=== PATIENT | female | born 1995 | race African-American/Black ===

== ENCOUNTER 2019-12-10 14:00 | Emergency (ER) | payer OTHER, SELFPAY ==
--- NOTE | ~2019-12-10 | XR_ITS ---
EXAMINATION: XR chest 2V DATE: 12/10/2019 15:00 INDICATION: Midline chest pain. Shortness of breath. TECHNIQUE: Frontal and lateral views of the chest were obtained. COMPARISON: CT abdomen and pelvis 10/25/2016 FINDINGS: The chest demonstrates clear lungs without pneumonia, pleural effusion, or pneumothorax. Th e heart size is normal. IMPRESSION: 1. No acute cardiopulmonary disease. Reviewed, dictated and finalized at location A. D WELFARE WORKER
[2019-12-10 14:40] VITALS: BP 117/73; PULSE 75; RESP 16; TEMP 37.1; O2SAT 100
--- NOTE | 2019-12-10 14:47 | ECG_ITS ---
Measurements Intervals [place] Rate: 75 P: 21 AR: 149 QRS: 74 QRSD: 72 T: 39 QT: 364 QTc: 406 Interpretive Statements SINUS RHYTHM BASELINE ARTIFACT- I, II, AVR, AVL NORMAL ECG Electronically Signed On 12-10-2019 15:54:04 TURN OUT WORKER by Balbir Fisher D.O.
[2019-12-10 14:57] LABS: Basophils Percent Auto 0.5 % (0.2-1.2); Eosinophils Absolute Auto 0.2 K/mm3 (0-0.3); Eosinophils Percent Auto 2.5 % (0-4.4); Hematocrit 32.9 % (37.0-47.0); Hemoglobin 9.1 g/dL (12.0-15.0); Immature Granulocyte Absolute 0.01 K/mm3 (0.00-0.031); Immature Granulocyte Percent A 0.1 % (0-0.5); Immature Platelet Fraction Pct 3.9 % (0.9-11.2); Lymphocytes Absolute Auto 1.44 K/mm3 (0.9-3.2); Mean Corpuscular HGB Conc 27.7 g/dl (32-36); Mean Corpuscular Hemoglobin 17.4 pg (26-34); Mean Platelet Volume 10.4 fl (7.4-10.4); Monocytes Absolute Auto 0.7 K/mm3 (0.1-0.6); Monocytes Percent Auto 8.6 % (2.6-8.5); Neutrophils Absolute Auto 5.2 K/mm3 (1.3-6.7); Neutrophils Percent Auto 69.3 % (45.5-73.1); Platelet Count Result 449 k/mm3 (150-375); Red Blood Count 5.22 M/mm3 (4.2-5.4); Red Cell Distribution Width 21.9 % (11.5-14.5); White Blood Count 7.6 K/mm3 (4.5-10.0)
[2019-12-10 15:03] LABS: Hypochromasia 3+ (NORMAL); Platelet Estimate Increased (Adequate)
[2019-12-10 15:04] LABS: Anisocytosis 1+ (NORMAL); Ovalocytes 1+ (NORMAL); Poikilocytosis 1+ (NORMAL)
[2019-12-10 15:05] LABS: INR 0.9; Prothrombin Time 12.1 Seconds (11.1-14.7)
[2019-12-10 15:06] LABS: Blood Urea Nitrogen 9 mg/dL (7-17); Calcium 9.6 mg/dL (8.4-10.2); Carbon Dioxide 24 mmol/L (22-30); Chloride 101 mmol/L (98-107); Estimated CRCL calculation 115 ml/min; Estimated Glomerular Filt Rate > 60; Glucose 83 mg/dL (65-105); Partial Thromboplastin Time 26.9 SECONDS (22.3-36.8); Potassium 3.8 mmol/L (3.4-5.0); Sodium 137 mmol/L (137-145)
[2019-12-10 15:21] LABS: Troponin I < 0.012 ng/mL (0.000-0.034)
[2019-12-10 18:24] VITALS: BP 104/79; PULSE 85; RESP 16
[2019-12-10 18:25] LABS: Troponin I < 0.012 ng/mL (0.000-0.034)
--- NOTE | 2019-12-10 18:32 | ED.CHESTPAIN ---
HPI - Chest Pain General Chief Complaint: Chest Pain Stated Complaint: chest pain, sent from siue Time Seen by Provider: 12/10/19 18:17 Source: patient Mode of arrival: ambulatory Limitations: no limitations History of Present Illness HPI narrative: The pt is a 24 y/o female who presents to the ED c/o diffuse CP onset today. 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 Pt states that this lasted 30-40 minutes, and the pain was worse on the left. Pt notes that her pain is resolved now. Pt reports SOB, but denies N/V and diaphoresis. MD complaint: chest pain Timing of current episode: now resolved Pain location: other (Diffuse chest, but worse on left side) Quality: other (Tightness) Associated symptoms: dyspnea Related Data Allergies Allergy/AdvReac Type Severity Reaction Status Date / Time divalproex sodium [Depakote] Allergy Unknown vomitting Verified 11/02/17 21:20 doxycycline Allergy Unknown Nausea Verified 11/02/17 21:20 montelukast Allergy Unknown agitation, Verified 11/02/17 21:20 mood changes. prednisone Allergy Unknown vomitting Verified 11/02/17 21:20 latex AdvReac Intermediate ITCHING AT Verified 10/25/16 07:50 SITE Review of Systems Review of Systems: All systems reviewed & are unremarkable except as noted in HPI and below Constitutional: Constitutional: Denies excessive sweating Cardiovascular: Cardiovascular: Reports chest pain (Diffuse, worse on left-side, resolved) Respiratory: Respiratory: Reports dyspnea Gastrointestinal: Gastrointestinal: Denies nausea and Denies vomiting [facility] Past Medical History Medical History (Updated 12/10/19 @ 19:19 by Fernando De Luna MD) Iron deficiency Ovarian cyst Surgical History Surgical History (Updated 12/10/19 @ 18:34 by Gene Bailon) Surgical history unknown Family History Family History (Updated 08/19/18 @ 15:23 by DOCTOR UNKNOWN) Grandparent Family history of malignant neoplasm of ovary Other Diabetes mellitus Hypertension Social History Social History Smoking status: Never smoker Alcohol intake: current Substance use type: marijuana Exam Const: General: no acute distress and alert Orientation/consciousness: patient oriented x3 HENMT: Head: normal to inspection Eyes: Conjunctivae: conjunctivae normal Pupils: Equal, round and reactive pupils present Neck: Neck: normal visual inspection Chest: Chest palpation & inspection: normal inspection of the chest Resp: Effort & Inspection: normal respiratory effort Auscultation: clear to auscultation bilaterally Cardio: Rate: regular rate Rhythm: regular rhythm GI: Auscultation: normal bowel sounds Back/Spine/Pelvis: Back: no CVA tenderness Skin: General skin exam: normal color Neuro: General: patient oriented x3 and moves all extremities Extrem: General: normal to inspection Psych: Mental Status: mental status grossly normal Thought content: Yes Normal thought content present Course Course Emergency Course: Patient comfortably lying on the stretcher in no discomfort, I discussed labs, EKG and chest x-ray findings with the patient and the family. This time a cause of pain most likely could be anxiety versus musculoskeletal origin. Advised her to take Tylenol ibuprofen for pain. And follow-up with her primary doctor. Vital Signs Vital signs: Vital Signs Temperature 37.1 C 12/10/19 14:40 Pulse Rate 75 12/10/19 14:40 Respiratory Rate 16 12/10/19 14:40 Blood Pressure 117/73 12/10/19 14:40 Pulse Oximetry 100 12/10/19 14:40 Temperature 37.1 C 12/10/19 14:40 Pulse Rate 75 12/10/19 14:40 Respiratory Rate 16 12/10/19 14:40 Blood Pressure 117/73 12/10/19 14:40 Pulse Oximetry 100 12/10/19 14:40 MDM - Chest Pain Lab Data Result diagrams: 12/10/19 14:49 12/10/19 14:49 Labs: Lab Results 12/10/19 12/10/19 12/10/19 Range/Units
--- NOTE | 2019-12-10 19:30 | PC.NURSE ---
ASSUMED CARE AT THIS TIME.
[2019-12-10 19:33] VITALS: BP 109/67; PULSE 76; RESP 18; TEMP 37; O2SAT 100
== END 2019-12-10 19:35 | disposition home or self-care (01) ==
PROVIDERS: Emergency Medicine; Emergency Provider Family Medicine; PCP Family Medicine
DX: R07.89 Other chest pain (principal); D50.9 Iron deficiency anemia, unspecified
CPT/HCPCS: 36415; 71046; 80048; 84484; 85025; 85055; 85610; 85730; 93005; 99284

== ENCOUNTER 2021-02-12 01:22 | Emergency (ER) | payer SELFPAY ==
[2021-02-12 01:29] VITALS: BP 128/70; PULSE 120; RESP 18; TEMP 36.3; O2SAT 98
[2021-02-12] MEDS: LIDOCAINE HCL 1% LOCAL INJ 20 ML VIAL 5 ML INFILTRATE (02:46)
[2021-02-12] MEDS: HYDROmorphone HCL INJ (*CRX) 1 MG/ML SYR IM (02:46)
[2021-02-12 03:30] VITALS: BP 118/64; PULSE 115; RESP 16; O2SAT 98
--- NOTE | 2021-02-12 04:07 | ED.GENADULT ---
HPI - General Adult General Chief complaint: Wound/Laceration Stated complaint: boil/ cyst L axilla Time Seen by Provider: 02/12/21 02:20 History of Present Illness HPI narrative: Patient is a 25-year-old female presents to emergency department chief complaint of pain in the left axilla. The patient states that she has history of infections in her armpit and reports that she has seen her doctor who told her that they could not be opened. Patient reports she is had pain for several days and has been progressively swelling patient states it hurts whenever she moves her left arm. Patient denies fever denies chills Related Data Home Medications Medication Instructions Recorded Confirmed loratadine 10 mg tablet 10 mg PO DAILY 05/07/20 01/03/21 Allergies Allergy/AdvReac Type Severity Reaction Status Date / Time divalproex sodium [Depakote] Allergy Unknown vomitting Verified 02/12/21 01:31 doxycycline Allergy Unknown Nausea Verified 02/12/21 01:31 montelukast Allergy Unknown agitation, Verified 02/12/21 01:31 mood changes. prednisone Allergy Unknown vomitting Verified 02/12/21 01:31 latex AdvReac Intermediate ITCHING AT Verified 02/12/21 01:31 SITE Review of Systems Review of Systems: Narrative: A 10 system review of systems was completed on the patient and is negative except for what is stated in the HPI. Nursing and ancillary documentation was reviewed. [facility] Past Medical History Medical History Iron deficiency Menorrhagia Ovarian cyst Overweight (BMI 25.0-29.9) Panic disorder/agoraphobia, agoraphobc avoid full rmssn/mld panc attck Sciatica Surgical History Surgical History Surgical history unknown Family History Family History Grandparent Family history of malignant neoplasm of ovary Other Diabetes mellitus Hypertension Social History Social History Alcohol intake: current Substance use type: marijuana Gender identity (if verbalized by the patient): Female Exam Narrative: Exam Narrative: GENERAL: Well-appearing, well-nourished, and in no acute distress. HEAD: Normocephalic, atraumatic. EYES: PERRLA and EOMI. ENT: Nares clear, no rhinorrhea or epistaxis. Mucous membranes moist. NECK: Supple. CHEST: Clear to auscultation. No respiratory distress. HEART: Regular rate and rhythm. No murmur heard. Normal peripheral pulses. ABDOMEN: Soft, nontender, nondistended, normal active bowel sounds. EXTREMITIES: Normal range of motion. No edema. Left axilla there is a large tender swollen area SKIN: Warm, dry, no rash. NEURO: No focal deficits. Alert and oriented x3. PSYCH: Normal mood and affect. Course Vital Signs Vital signs: Vital Signs Temperature 36.3 C L 02/12/21 01:29 Pulse Rate 120 H 02/12/21 01:29 Respiratory Rate 18 02/12/21 01:29 Blood Pressure 128/70 02/12/21 01:29 Pulse Oximetry 98 02/12/21 01:29 Temperature 36.3 C L 02/12/21 01:29 Pulse Rate 120 H 02/12/21 01:29 Respiratory Rate 18 02/12/21 01:29 Blood Pressure 128/70 02/12/21 01:29 Pulse Oximetry 98 02/12/21 01:29 Procedures Abscess I/D Left axilla: Date of Incision: 02/12/21 Time of Incision: 04:00 Side (if applicable): left Local Anesthetic: lidocaine 1% Amount of anesthesia used (mL): 5 Technique: incised with #11 blade Amount of fluid expressed (mL): 10 Packing used?: none I&D Results: Pus Medical Decision Making Vital Signs Vital Signs: Vital Signs Temperature 36.3 C L 02/12/21 01:29 Pulse Rate 120 H 02/12/21 01:29 Respiratory Rate 18 02/12/21 01:29 Blood Pressure 128/70 02/12/21 01:29 Pulse Oximetry 98 02/12/21 01:29 Temperature 36.3 C L 0
[2021-02-12] MEDS: HYDROcodone/acetaminophen (*CRX) 5-325 MG TABLET 1 TAB PO (04:23)
[2021-02-12] MEDS: CLINDAMYCIN HCL 150 MG CAP 300 MG PO (04:24)
[2021-02-12 04:55] VITALS: BP 109/64; PULSE 68; RESP 16; O2SAT 96
== END 2021-02-12 04:55 | disposition home or self-care (01) ==
PROVIDERS: Emergency Provider Emergency Medicine; PCP Family Medicine
DX: L02.412 Cutaneous abscess of left axilla (principal)
CPT/HCPCS: 10060; 96372; 99283; A9270; J1170

== ENCOUNTER 2021-08-18 11:55 | Emergency (ER) | payer SELFPAY | END 2021-08-18 11:56 | disposition left against medical advice (07) | PROVIDERS: PCP Family Medicine | DX: Z53.21 Procedure and treatment not carried out due to patient leaving prior to being seen by health care provider (principal) | CPT/HCPCS: 99199 ==

== ENCOUNTER 2021-08-22 12:25 | Outpatient (CLI) | payer OTHER, SELFPAY ==
--- NOTE | 2021-08-22 12:56 | ECHO_ITS ---
Patient Info Name: Fouzia Galvez Age: 26 years : 1995 Gender: Female Ht: 62 in Wt: 157 lbs BSA: 1.79 m2 HR: 71 bpm BP: 125 / 91 mmHg Exam Date: 08/22/2021 1:02 PM Exam Location: [facility] Patient Status: Outpatient Admit Date: 08/22/2021 Staff Ordering Physician: Momo Marcum MD Chairman & Chief Executive Officer: Karen Barajas RDCS Attending Provider: Momo Marcum MD Referring Physician: Trixie HIGGINBOTHAM; Exam Type: CA echo doppler color flow Study Info Indications R94.31 - Abnormal electrocardiogram ECG EKG Complete two-dimensional, color flow and Doppler transthoracic echocardiogram is performed. Summary 1. Complete two-dimensional, color flow and Doppler transthoracic echocardiogram is performed. 2. Left ventricular chamber dimension is normal. 3. Left ventricular systolic function is normal, estimated at 60-65%. 4. The left ventricular diastolic function is normal. 5. E/e' 6 is not elevated. 6. Global longitudinal strain is normal at -19.8%. 7. There is no tricuspid valve regurgitation. 8. No pulmonary hypertension, estimated pulmonary arterial systolic pressure is 27 mmHg. Left Ventricle E/e' 6 is not elevated. Global longitudinal strain is normal at -19.8%. Left ventricular chamber dimension is normal. Left ventricular systolic function is normal, estimated at 60-65%. The left ventricular diastolic function is normal. Right Ventricle Right ventricular chamber dimension is normal. Right ventricular systolic function is normal. Left Atria Left atrial chamber dimension is normal. Right Atria Right atrial chamber dimension is normal. Aortic Valve The aortic valve is trileaflet. There is no aortic valve stenosis. There is no aortic valve regurgitation. Pulmonic Valve There is no pulmonic regurgitation. Mitral Valve There is no mitral valve stenosis. There is no mitral valve regurgitation. Tricuspid Valve There is no tricuspid valve regurgitation. No pulmonary hypertension, estimated pulmonary arterial systolic pressure is 27 mmHg. Pericardium/Pleural There is no pericardial effusion. Inferior Vena Cava Normal inferior vena cava with >50% collapse upon inspiration consistent with normal right atrial pressure, 5 mmHg. Aorta The aortic root size at the sinus of Valsalva is normal. Left Ventricular Outflow Tract Name Value Normal LVOT 2D LVOT Diameter 2.0 cm LVOT Doppler LVOT Peak Gradient 4 mmHg LVOT Mean Gradient 2 mmHg LVOT VTI 23 cm LVOT VTI/AV VTI Ratio 0.9 LVOT Stroke Volume 69 ml LVOT CO 5.0 l/min LVOT CI 2.8 l/min/m2 Pulmonic Valve Name Value Normal RVOT Doppler RVOT Peak Grad
== END 2021-08-22 12:26 | disposition home or self-care (01) ==
PROVIDERS: PCP Family Medicine; Visit Provider Family Medicine
DX: R07.89 Other chest pain (principal); R94.31 Abnormal electrocardiogram [ECG] [EKG]
CPT/HCPCS: 93306

== ENCOUNTER 2021-10-04 05:53 | Emergency (ER) | payer OTHER, SELFPAY ==
--- NOTE | ~2021-10-04 | XR_ITS ---
EXAMINATION: XR soft tissue neck DATE: 10/04/2021 06:50 INDICATION: Sore throat. TECHNIQUE: 2 views of the neck soft tissues were obtained. COMPARISON: None. FINDINGS: The adenoids and palatine tonsils are enlarged. The prevertebral soft tissues, epiglottis, and larynx are normal. IMPRESSION: 1. Enlarged adenoids and palatine tonsils. Reviewed, dictated and finalized at location A. CENTER ADMINISTRATOR
[2021-10-04 06:00] VITALS: BP 121/79; PULSE 89; RESP 22; TEMP 36.5; O2SAT 100
--- NOTE | 2021-10-04 06:13 | ED.ALLEREA ---
HPI - Allergic Reaction General Chief complaint: Allergic Reaction Stated complaint: possible allergic reaction Time Seen by Provider: 10/04/21 06:13 Source: patient Mode of arrival: ambulatory Limitations: no limitations History of Present Illness HPI narrative: Patient is a 26-year-old female presenting for evaluation of possible allergic reaction. Patient states that she is having a sore throat, painful swallowing that began acutely 2 hours ago. Patient states that it awaken her from sleep. Patient denies any current shortness of breath or cough. Denies fever, chills, ear pain. States that she has a history of chronic sinus problems, does have some sinus congestion and drainage. Patient denies any neck pain. Denies chest pain, abdominal pain. No nausea, vomiting or diarrhea. No rash or hives. No history of severe allergic reaction or anaphylaxis in the past. Denies new soaps, lotions or detergents. No new pet exposures. No new medications. Patient states that she did eat some fish from the hospital last night, patient works in [employer], but did not have any symptoms until several hours later, early this morning. Related Data Allergies Allergy/AdvReac Type Severity Reaction Status Date / Time divalproex sodium [Depakote] Allergy Unknown vomitting Verified 10/04/21 06:09 doxycycline Allergy Unknown Nausea Verified 10/04/21 06:09 montelukast Allergy Unknown agitation, Verified 10/04/21 06:09 mood changes. prednisone Allergy Unknown vomitting Verified 10/04/21 06:09 latex AdvReac Intermediate ITCHING AT Verified 10/04/21 06:09 SITE Review of Systems Review of Systems: CONSTITUTIONAL: Denies fever, chills, or sweats. EYES: Denies visual changes, redness, or discharge. ENT: Reports rhinorrhea, congestion, sore throat CARDIOVASCULAR: Denies chest pain, palpitations, or edema. RESPIRATORY: Denies cough or dyspnea. GASTROINTESTINAL: Denies abdominal pain, nausea, vomiting, or diarrhea. GENITOURINARY: Denies dysuria or hematuria. SKIN: Denies rash or itching. MUSCULOSKELETAL: Denies back pain, joint pain, or myalgia. NEUROLOGIC: Denies headache, numbness, or weakness. [facility] Past Medical History Medical History COVID-19 Iron deficiency Menorrhagia Ovarian cyst Overweight (BMI 25.0-29.9) Panic disorder/agoraphobia, agoraphobc avoid full rmssn/mld panc attck Sciatica Surgical History Surgical History Surgical history unknown Family History Family History Grandparent Family history of malignant neoplasm of ovary Other Diabetes mellitus Hypertension Social History Social History Alcohol intake: current Substance use type: marijuana Gender identity (if verbalized by the patient): Female Exam Narrative: GENERAL: Awake, alert, conversant HEAD: Normocephalic, atraumatic. EYES: PERRLA and EOMI. ENT: Nares clear, no rhinorrhea or epistaxis. Mucous membranes moist. Uvula is midline without edema. Tonsillar edema without erythema or exudate. NECK: Supple. No cervical anterior lymphadenopathy. CHEST: No respiratory distress, breathing even and non labored HEART: Regular rate, sinus rhythm ABDOMEN:Non distended, non tender throughout EXTREMITIES: Normal range of motion. No edema. SKIN: Warm, dry, no rash. NEURO:No focal deficits. Alert and oriented x3 Course Vital Signs Vital signs: Vital Signs Temperature 36.5 C 10/04/21 06:00 Pulse Rate 89 10/04/21 06:00 Respiratory Rate 22 H 10/04/21 06:00 Blood Pressure 121/79 10/04/21 06:00 Pulse Oximetry 100 10/04/21 06:00 Temperature 36.5 C 10/04/21 06:00 Pulse Rate 64 10/04/21 07:11 Respiratory Rate 16 10/04/21 07:11 Blood Pressure 106/48 L 10/04/21 07:11 Pulse Oximetry 100 10/04/21 07:11
[2021-10-04] MEDS: diphenhydrAMINE HCl INJ 50 MG/ML VIAL 25 MG IV PUSH (06:24)
[2021-10-04] MEDS: SODIUM CHLORIDE 0.9% IV 1,000 ML 999 ML IV CONT (06:24)
[2021-10-04] MEDS: FAMOTIDINE 20 MG/2 ML VIAL IV PUSH (06:26)
[2021-10-04] MEDS: ONDANSETRON INJ 4 MG/2 ML VIAL IV PUSH (06:27)
[2021-10-04] MEDS: KETOROLAC 15 MG/ML VIAL (*BKC) IV PUSH (07:06)
[2021-10-04 07:11] VITALS: BP 106/48; PULSE 64; RESP 16; O2SAT 100
--- NOTE | 2021-10-04 07:21 | PC.NURSE ---
Report to Deisi Parnell RN, to continue care.
[2021-10-04 07:23] LABS: Basophils Percent Auto 0.4 % (0.2-1.2); Eosinophils Absolute Auto 0.4 K/mm3 (0-0.3); Eosinophils Percent Auto 4.3 % (0-4.4); Hematocrit 34.1 % (37.0-47.0); Hemoglobin 10.1 g/dL (12.0-15.0); Immature Granulocyte Absolute 0.02 K/mm3 (0.00-0.031); Immature Granulocyte Percent A 0.2 % (0-0.5); Immature Platelet Fraction Pct 4.9 % (0.9-11.2); Lymphocytes Absolute Auto 1.83 K/mm3 (0.9-3.2); Lymphocytes Percent Auto 19.7 % (18.3-44.2); Mean Corpuscular HGB Conc 29.6 g/dl (32-36); Mean Corpuscular Hemoglobin 19.5 pg (26-34); Mean Corpuscular Volume 65.8 fl (80-100); Mean Platelet Volume 10.8 fl (7.4-10.4); Monocytes Absolute Auto 1.2 K/mm3 (0.1-0.6); Neutrophils Absolute Auto 5.8 K/mm3 (1.3-6.7); Neutrophils Percent Auto 62.4 % (45.5-73.1); Platelet Count Result 411 k/mm3 (150-375); Red Blood Count 5.18 M/mm3 (4.2-5.4); Red Cell Distribution Width 18.7 % (11.5-14.5); White Blood Count 9.3 K/mm3 (4.5-10.0)
[2021-10-04 07:25] LABS: Anion Gap 8 mmol/L (8-16); Blood Urea Nitrogen 14 mg/dL (7-17); Calcium 9.4 mg/dL (8.4-10.2); Carbon Dioxide 24 mmol/L (22-30); Chloride 103 mmol/L (98-107); Estimated CRCL calculation 129 ml/min; Estimated Glomerular Filt Rate > 60; Glucose 92 mg/dL (65-110); Potassium 3.9 mmol/L (3.4-5.0); Sodium 135 mmol/L (137-145)
[2021-10-04 07:43] LABS: Large Platelets Present; Platelet Estimate Increased (Adequate); Poikilocytosis 1+ (NORMAL)
[2021-10-04 07:44] LABS: Hypochromasia 2+ (NORMAL); Ovalocytes 1+ (NORMAL)
[2021-10-04 08:19] VITALS: BP 112/76; PULSE 90; RESP 18; O2SAT 98
--- NOTE | 2021-10-10 15:47 | PC.NURSE ---
LATE ENTRY This note is being entered to document information to the patient's record. The following information was omitted on [10/04/21], by [Alfonso Barr RN]. NS stop time 0715am
== END 2021-10-04 08:19 | disposition home or self-care (01) ==
PROVIDERS: Emergency Provider Emergency Medicine; PCP Family Medicine
DX: J02.9 Acute pharyngitis, unspecified (principal); E66.3 Overweight; Z68.22 Body mass index [BMI] 22.0-22.9, adult; E61.1 Iron deficiency; Z86.16 Personal history of COVID-19; F40.01 Agoraphobia with panic disorder
CPT/HCPCS: 36415; 70360; 80048; 85025; 85055; 87081; 87880; 96361; 96374; 96375; 99284; J1100; J1200; J1885; J2405; J7030

== ENCOUNTER 2022-05-04 10:01 | Outpatient (CLI) | payer OTHER, SELFPAY ==
--- NOTE | ~2022-05-04 | XR_ITS ---
XR shoulder LT min 2V DATE: 05/04/2022 10:46 INDICATION: Left shoulder pain following injury TECHNIQUE: 4 views COMPARISON: None FINDINGS: No fracture or dislocation, periosteal reaction or bone destruction or abnormal soft tissue calcification. IMPRESSION: Normal examination Reviewed, dictated and finalized at location A. IMPRESSION: Normal examination
--- NOTE | ~2022-05-04 | XR_ITS ---
XR AC joint BI DATE: 05/04/2022 10:46 INDICATION: Left shoulder pain. Struck in shoulder. TECHNIQUE: AP views of the sacroiliac joints with and without weights COMPARISON: None FINDINGS: No fracture or dislocation in either clavicle or shoulder area is identified. Normal alignm ent at the acromioclavicular and glenohumeral joints. No evidence of AC joint separation. IMPRESSION: Negative Reviewed, dictated and finalized at Location A. Reviewed, dictated and finalized at location A. IMPRESSION: Negative
== END 2022-05-04 10:02 | disposition home or self-care (01) ==
PROVIDERS: PCP Family Medicine; Visit Provider Family Medicine
DX: S46.919A Strain of unspecified muscle, fascia and tendon at shoulder and upper arm level, unspecified arm, initial encounter (principal); X58.XXXA Exposure to other specified factors, initial encounter
CPT/HCPCS: 73030; 73050

== ENCOUNTER 2023-09-27 13:59 | Emergency (ER) | payer SELFPAY ==
--- NOTE | ~2023-09-27 | XR_ITS ---
EXAMINATION: XR chest 2V 09/27/2023 15:04 INDICATION: Chest pain and shortness of breath PROCEDURE: 2 view chest COMPARISON: 01/19/2021 FINDINGS: The lungs are clear. The cardiomediastinal silhouette is within normal limits. There are no pleural effusions. There is no pneumothorax suspected. IMPRESSION: 1: NO ACUTE CARDIOPULMONARY DISEASE. Reviewed, dictated and finalized at location L. ANT POWDER SUPERVISOR
[2023-09-27 14:19] VITALS: BP 117/82; PULSE 100; RESP 15; TEMP 36.7; O2SAT 100
--- NOTE | 2023-09-27 14:27 | ECG_ITS ---
Measurements Intervals [place] Rate: 80 P: 39 TN: 176 QRS: 70 QRSD: 69 T: 34 QT: 353 QTc: 408 Interpretive Statements SINUS RHYTHM NORMAL ECG COMPARED TO ECG 12/10/2019 14:40:56 NO SIGNIFICANT CHANGES Electronically Signed On 09-27-2023 15:10:51 HOME ASSESSMENT NURSE by Balbir Fisher D.O.
[2023-09-27 15:05] LABS: Basophils Percent Auto 0.6 % (0.2-1.2); Eosinophils Absolute Auto 0.2 K/mm3 (0-0.3); Eosinophils Percent Auto 2.9 % (0-4.4); Hematocrit 37.1 % (37.0-47.0); Hemoglobin 10.9 g/dL (12.0-15.0); Immature Granulocyte Absolute 0.01 K/mm3 (0.00-0.031); Immature Granulocyte Percent A 0.2 % (0-0.5); Lymphocytes Absolute Auto 1.03 K/mm3 (0.9-3.2); Lymphocytes Percent Auto 15.7 % (18.3-44.2); Mean Corpuscular HGB Conc 29.4 g/dl (32-36); Mean Corpuscular Hemoglobin 22.9 pg (26-34); Mean Corpuscular Volume 77.9 fl (80-100); Monocytes Absolute Auto 0.7 K/mm3 (0.1-0.6); Monocytes Percent Auto 10.4 % (2.6-8.5); Neutrophils Absolute Auto 4.6 K/mm3 (1.3-6.7); Neutrophils Percent Auto 70.2 % (45.5-73.1); Platelet Count Result 453 k/mm3 (150-375); Red Blood Count 4.76 M/mm3 (4.2-5.4); Red Cell Distribution Width 15.8 % (11.5-14.5); White Blood Count 6.6 K/mm3 (4.5-10.0)
[2023-09-27 15:15] LABS: Hypochromasia 1+ (NORMAL); Ovalocytes 1+ (NORMAL); Platelet Estimate Increased (Adequate); Schistocytes None Seen (NORMAL)
[2023-09-27 15:19] LABS: Alanine Aminotransferase 32 U/L (6-35); Albumin Level 4.6 g/dL (3.5-5.1); Alkaline Phosphatase 152 U/L (38-126); Anion Gap 11 mmol/L (8-16); Aspartate Amino Transferase 29 U/L (14-36); Bilirubin,Total 0.4 mg/dL (0.2-1.3); Blood Urea Nitrogen 10 mg/dL (7-17); Calcium 9.8 mg/dL (8.4-10.2); Carbon Dioxide 26 mmol/L (22-30); Chloride 102 mmol/L (98-107); Estimated CRCL calculation 94 ml/min; Estimated Glomerular Filt Rate > 60; Glucose 91 mg/dL (65-110); Lipase 73 U/L (23-300); Potassium 4.3 mmol/L (3.4-5.0); Sodium 139 mmol/L (137-145)
[2023-09-27 15:29] LABS: Troponin I < 0.012 ng/mL (0.000-0.034)
[2023-09-27 15:40] LABS: INR 0.9; Prothrombin Time 12.9 Seconds (11.1-14.7)
[2023-09-27 17:13] LABS: D Dimer 0.39 ug/mL (<0.48)
--- NOTE | 2023-09-27 17:29 | ED.ARRPALP ---
HPI - Arrhythmia/Palpitations General Chief Complaint: Arrhythmia/Palpitations Stated Complaint: fast heart rate sent from Urgent Care Time Seen by Provider: 09/27/23 16:13 Source: patient, RN notes reviewed and old records reviewed Mode of arrival: ambulatory Limitations: no limitations History of Present Illness HPI narrative: This is a 28 year old female with history of anxiety and panic attacks who presents for evaluation of chest pain and racing heart. Patient states earlier today she was deep in her thoughts when she developed intermittent sharp chest pain , shortness of breath, sweaty palms and heart racing. She went to [facility] for evaluation. It is reported that her heart rate was 150s at that time so she was referred to ER. She states she feels better although some mild chest pain. She reports history of similar episodes. She has been evaluated with ECHO in the past. She also reports she was placed on medication for panic attacks but she did not like how it made her feel so she was taken off. Related Data Allergies Allergy/AdvReac Type Severity Reaction Status Date / Time divalproex sodium [Depakote] Allergy Unknown vomitting Verified 09/27/23 15:44 doxycycline Allergy Unknown Nausea Verified 09/27/23 15:44 montelukast Allergy Unknown agitation, Verified 09/27/23 15:44 mood changes. prednisone Allergy Unknown vomitting Verified 09/27/23 15:44 latex AdvReac Intermediate ITCHING AT Verified 09/27/23 15:44 SITE Review of Systems Constitutional: Constitutional: Denies weakness Cardiovascular: Cardiovascular: Reports chest pain, Denies syncope, Reports rapid heart rate, Denies irregular heart rhythm, Denies leg edema and Reports dyspnea Respiratory: Respiratory: Denies chest congestion, Denies hemoptysis, Denies excessive phlegm production and Reports dyspnea Gastrointestinal: Gastrointestinal: Denies abdominal pain, Denies hematochezia, Denies diarrhea and Denies vomiting Genitourinary: Genitourinary: Denies hematuria and Denies dysuria Musculoskeletal: Musculoskeletal: Denies joint swelling, Denies loss of height and Denies muscle weakness Neurologic: Denies syncope, Denies focal weakness and Denies weakness [facility] Past Medical History Medical History COVID-19 Iron deficiency Menorrhagia Ovarian cyst Overweight (BMI 25.0-29.9) Panic disorder/agoraphobia, agoraphobc avoid full rmssn/mld panc attck Sciatica Surgical History Surgical History Surgical history unknown Family History Family History Grandparent Family history of malignant neoplasm of ovary Other Diabetes mellitus Hypertension Social History Social History Smoking status: Never smoker Alcohol intake: current Substance use type: marijuana Living arrangements: with roommate(s) Gender identity (if verbalized by the patient): Female Spiritual care concerns: No Exam Const: General: no acute distress and alert Nutritional Appearance: well nourished Orientation/consciousness: patient oriented x3 HENMT: Head: normal to inspection Eyes: EOM: EOMs intact bilaterally Resp: Effort & Inspection: normal respiratory effort Auscultation: clear to auscultation bilaterally Cardio: Rate: regular rate Rhythm: regular rhythm Heart sounds: no murmurs GI: GI Palp: Yes Soft to palpation, No Tenderness to palpation present (GI), No Guarding due to palpation present (GI) and No Rigid due to palpation Auscultation: normal bowel sounds Skin: General skin exam: normal color Rashes: no rashes Wounds: no wounds Neuro: General: patient oriented x3, moves all extremities and CN's II-XI intact bilaterally Extrem: General: normal to inspection and no pedal edema Psych: Mental Status: mental
[2023-09-27 17:34] VITALS: BP 109/74; PULSE 85; RESP 18; TEMP 36.7; O2SAT 100
[2023-09-27 17:46] LABS: Thyroid Stimulating Hormone Reflex 0.307 uIU/mL (0.465-4.68)
[2023-09-27 18:26] LABS: Troponin I < 0.012 ng/mL (0.000-0.034)
[2023-09-27 19:11] LABS: Total Triiodothyronine (T3) 1.45 NG/ML (0.97-1.69)
== END 2023-09-27 19:03 | disposition home or self-care (01) ==
PROVIDERS: Emergency Medicine; Emergency Provider General Practice; PCP Family Medicine
DX: R00.2 Palpitations (principal)
CPT/HCPCS: 36415; 71046; 80053; 83690; 84439; 84443; 84480; 84484; 85025; 85380; 85610; 85730; 93005; 99284

== ENCOUNTER 2024-01-22 07:05 | Emergency (ER) | payer SELFPAY ==
--- NOTE | ~2024-01-22 | XR_ITS ---
EXAMINATION: XR chest 2V DATE: 01/22/2024 07:50 INDICATION: Midline nonradiating chest pain. TECHNIQUE: Frontal and lateral views of the chest were obtained. COMPARISON: Chest 2 views 09/27/2023, CT abdomen and pelvis 10/25/2016 FINDINGS: There is no pneumonia, pleural effusion, or pneumothorax. The heart size is normal. IMPRESSION: 1. No acute cardiopulmonary disease. Reviewed, dictated and finalized at location E.
--- NOTE | ~2024-01-22 | CT_ITS ---
EXAMINATION: CTA chest PE protocol DATE: 01/22/2024 09:23 INDICATION: Is pain. Elevated d-dimer. TECHNIQUE: Computed tomography (CT) pulmonary angiogram of the chest was performed with 100 mL Omnipa que-350 intravenous contrast. Additional 3D reconstructions utilizing coronal maximum intensity proje ction (MIP) were performed. Automated exposure control and iterative reconstruction technique were em ployed. The dose-length product was 299.29 mGy-cm. COMPARISON: None FINDINGS: Diagnostic quality study demonstrating no pulmonary embolism. No pneumonia, pulmonary edema, pleural effusion or pneumothorax. Heart size is normal. No pericardial effusion. Thoracic aorta is normal in caliber with no dissection. No pathologically enlarged thoracic lymphadenopathy. Visualized upper abd omen is unremarkable. Mild likely physiologic anterior wedging at T12 and L1. IMPRESSION: 1. No pulmonary embolism or other acute cardiopulmonary disease. Reviewed, dictated and finalized at location A.
[2024-01-22 07:06] VITALS: BP 101/61; PULSE 73; RESP 17; TEMP 36.8; O2SAT 100
--- NOTE | 2024-01-22 07:11 | ECG_ITS ---
Measurements Intervals [place] Rate: 68 P: 18 [place]: 170 QRS: 74 QRSD: 71 T: 43 QT: 369 QTc: 395 Interpretive Statements SINUS RHYTHM CANNOT RULE OUT SEPTAL INFARCT, AGE INDETERMINATE ABNORMAL ECG COMPARED TO ECG 09/27/2023 14:48:29 NO SIGNIFICANT CHANGES Electronically Signed On 01-22-2024 7:55:15 CDT by Balbir Fisher D.O.
[2024-01-22 07:51] LABS: Basophils Absolute Auto 0.1 K/mm3 (0.0-0.1); Basophils Percent Auto 0.8 % (0.2-1.2); Eosinophils Absolute Auto 0.3 K/mm3 (0-0.3); Eosinophils Percent Auto 4.1 % (0-4.4); Hemoglobin 9.5 g/dL (12.0-15.0); Immature Granulocyte Absolute 0.02 K/mm3 (0.00-0.031); Immature Granulocyte Percent A 0.3 % (0-0.5); Lymphocytes Absolute Auto 1.54 K/mm3 (0.9-3.2); Lymphocytes Percent Auto 25.3 % (18.3-44.2); Mean Corpuscular HGB Conc 29.7 g/dl (32-36); Mean Corpuscular Hemoglobin 21.4 pg (26-34); Mean Corpuscular Volume 72.2 fl (80-100); Mean Platelet Volume 11.4 fl (7.4-10.4); Monocytes Absolute Auto 0.8 K/mm3 (0.1-0.6); Monocytes Percent Auto 12.5 % (2.6-8.5); Neutrophils Absolute Auto 3.5 K/mm3 (1.3-6.7); Platelet Count Result 362 k/mm3 (150-375); Red Blood Count 4.43 M/mm3 (4.2-5.4); Red Cell Distribution Width 17.6 % (11.5-14.5); White Blood Count 6.1 K/mm3 (4.5-10.0)
[2024-01-22 07:59] LABS: INR 0.9
[2024-01-22 08:00] LABS: Alanine Aminotransferase 19 U/L (6-35); Alkaline Phosphatase 122 U/L (38-126); Anion Gap 6 mmol/L (8-16); Aspartate Amino Transferase 21 U/L (14-36); Bilirubin,Total 0.4 mg/dL (0.2-1.3); Blood Urea Nitrogen 8 mg/dL (7-17); Calcium 9.4 mg/dL (8.4-10.2); Carbon Dioxide 26 mmol/L (22-30); Chloride 107 mmol/L (98-107); Estimated CRCL calculation 115 ml/min; Estimated Glomerular Filt Rate > 60; Glucose 89 mg/dL (65-110); Lipase 78 U/L (23-300); Partial Thromboplastin Time 22.5 Seconds (22.3-36.8); Potassium 3.8 mmol/L (3.4-5.0); Sodium 139 mmol/L (137-145)
[2024-01-22 08:09] LABS: Troponin I < 0.012 ng/mL (0.000-0.034)
[2024-01-22 08:18] LABS: Hypochromasia 2+; Ovalocytes 1+; Platelet Estimate Adequate (Adequate); Schistocytes None Seen
[2024-01-22 09:41] VITALS: BP 101/48; PULSE 79; RESP 22; O2SAT 100
--- NOTE | 2024-01-22 10:13 | PC.NURSE ---
Verified w/Dr. De Luna he no longer wanted repeat EKG nor 3 hr troponin
--- NOTE | 2024-01-22 10:39 | ED.CHESTPAIN ---
HPI - Chest Pain General Chief Complaint: Chest Pain Stated Complaint: CP x 2 years Time Seen by Provider: 01/22/24 07:10 Source: patient Mode of arrival: EMS Limitations: no limitations History of Present Illness HPI narrative: 28-year-old here with complaints of chest pain next item 3:00 a.m.. Patient states that pain is in the mid chest area, hurts anytime she moves arms on stretches. She denies any cough or shortness of breath. Patient states that she has been having this pain since 2021. No history of fever or chills. She does states that she cleaned the house yesterday she was given nitro and aspirin on ambulance with no relief MD complaint: chest pain Pain radiation: none Severity: moderate Quality: aching Relieving factors: nothing Exacerbating factors: movement Risk Factors Coronary artery disease risk factors: none Thoracic aortic dissection risk factors: none Related Data Allergies Allergy/AdvReac Type Severity Reaction Status Date / Time latex AdvReac Intermediate ITCHING AT Verified 09/27/23 15:44 SITE divalproex sodium [Depakote] AdvReac Unknown Vomiting Verified 01/22/24 07:15 doxycycline AdvReac Unknown Nausea Verified 01/22/24 07:15 montelukast AdvReac Unknown agitation, Verified 01/22/24 07:15 mood changes. prednisone AdvReac Unknown Vomiting Verified 01/22/24 07:15 naproxen AdvReac Vomiting Verified 01/22/24 07:15 Review of Systems Review of Systems: All systems reviewed & are unremarkable except as noted in HPI and below Constitutional: Constitutional: Reports no additional constitutional complaints Eyes: Eyes: Reports no additional eye complaints ENT: Reports system reviewed and no additional complaints, except as documented Cardiovascular: Cardiovascular: Reports as per HPI Respiratory: Respiratory: Reports no additional respiratory complaints Gastrointestinal: Gastrointestinal: Reports no additional gastrointestinal complaints Genitourinary: Genitourinary: Reports no additional female genitourinary complaints Musculoskeletal: Musculoskeletal: Reports no additional musculoskeletal complaints Integumentary/Breasts: Skin/Breast: Reports system reviewed and no additional complaints, except as docu Neurologic: Reports system reviewed and no additional complaints, except as documented PMFSH Past Medical History Medical History COVID-19 Iron deficiency Menorrhagia Ovarian cyst Overweight (BMI 25.0-29.9) Panic disorder/agoraphobia, agoraphobc avoid full rmssn/mld panc attck Sciatica Surgical History Surgical History Surgical history unknown Family History Family History Grandparent Family history of malignant neoplasm of ovary Other Diabetes mellitus Hypertension Social History Social History Smoking status: Never smoker Alcohol intake: current Substance use type: marijuana Living arrangements: with roommate(s) Gender identity (if verbalized by the patient): Female Spiritual care concerns: No Exam Narrative: GENERAL: Well-appearing, well-nourished, and in no acute distress. HEAD: Normocephalic, atraumatic. EYES: PERRLA and EOMI. ENT: Nares clear, no rhinorrhea NECK: Supple. CHEST: Clear to auscultation. No respiratory distress. HEART: Regular rate and rhythm. No murmur heard. Normal peripheral pulses. ABDOMEN: Soft, nontender, nondistended, normal active bowel sounds. EXTREMITIES: Normal range of motion. No edema. SKIN: Warm, dry, no rash. NEURO: No focal deficits. Alert and oriented x3. PSYCH: Normal mood and affect. Course Course Emergency Course: Informed patient about her lab work, EKG and CT findings with Librado advised to take pain medication. She has constant chest pain. Vital Signs Vital signs: Hailey
== END 2024-01-22 11:03 | disposition home or self-care (01) ==
PROVIDERS: Emergency Provider Family Medicine; PCP Family Medicine
DX: R07.9 Chest pain, unspecified (principal)
CPT/HCPCS: 36415; 71046; 71275; 80053; 81025; 83690; 84484; 85025; 85380; 85610; 85730; 93005; 99284; Q9967

== ENCOUNTER 2025-07-15 16:13 | Emergency (ER) | payer OTHER, SELFPAY ==
--- NOTE | 2025-07-15 16:18 | ED.URI ---
HPI - URI/Sore Throat General Chief Complaint: Upper Respiratory Infection Stated Complaint: Sinus Time Seen by Provider: 07/15/25 16:18 Source: patient Mode of arrival: ambulatory Limitations: no limitations History of Present Illness HPI Narrative: Patient is a 30-year-old female who presents with 3 days of congestion, sinus pressure and headache. Patient has not taken anything for symptoms. Denies any fever, chills, nausea, vomiting, diarrhea, sore throat, cough Related Data Allergies Allergy/AdvReac Type Severity Reaction Status Date / Time latex AdvReac Intermediate ITCHING AT Verified 07/15/25 16:16 SITE divalproex sodium (Depakote) AdvReac Unknown Vomiting Verified 07/15/25 16:16 doxycycline AdvReac Unknown Nausea Verified 07/15/25 16:16 montelukast AdvReac Unknown agitation, Verified 07/15/25 16:16 mood changes. prednisone AdvReac Unknown Vomiting Verified 07/15/25 16:16 naproxen AdvReac Vomiting Verified 07/15/25 16:16 Review of Systems Review of Systems: All systems reviewed & are unremarkable except as noted in HPI and below Constitutional: Constitutional: Denies chills, Denies fatigue, Denies fever(s), Reports headache(s), Denies malaise and Denies weakness Eyes: Eyes: Denies blurry vision, Denies itchy eyes and Denies loss of vision ENT: Denies otalgia, Denies headache(s), Reports nasal congestion, Reports sinus pressure and Denies sore throat Cardiovascular: Cardiovascular: Denies chest pain, Denies irregular heart rhythm and Denies dyspnea Respiratory: Respiratory: Denies cough and Denies dyspnea Gastrointestinal: Gastrointestinal: Denies abdominal pain, Denies diarrhea, Denies nausea and Denies vomiting Musculoskeletal: Musculoskeletal: Denies back pain, Denies myalgias and Denies arthralgias Integumentary/Breasts: Skin/Breast: Denies pruritus and Denies rash Neurologic: Denies headache(s), Denies loss of vision and Denies weakness Psychiatric: Psychiatric: Reports no additional psychiatric complaints Endocrine: Endocrine: Denies fatigue Allergic/Immunologic: Allergic/Immunologic: Denies itchy eyes PMFSH Past Medical History Medical History COVID-19 Menorrhagia Sciatica Overweight (BMI 25.0-29.9) Panic disorder/agoraphobia, agoraphobc avoid full rmssn/mld panc attck Ovarian cyst Iron deficiency Surgical History Surgical History Surgical history unknown Family History Family History Grandparent Family history of malignant neoplasm of ovary Other Diabetes mellitus Hypertension Social History Social History Smoking status: Never smoker Alcohol intake: current Substance use type: marijuana Living arrangements: with roommate(s) Gender identity (if verbalized by the patient): Female Spiritual care concerns: No Comments At time of signature, agree with nursing past medical, surgical, social and family history. There is no relevant family history pertinent to the presenting complaint. Exam Const: General: cooperative, healthy appearing, comfortable, no acute distress and well nourished Nutritional Appearance: well nourished Orientation/consciousness: patient oriented x3 Limitations: no limitations HENMT: Head: normal to inspection, normocephalic and atraumatic Ears: hearing grossly normal bilaterally, external ears normal, TM's normal bilaterally, EAC's normal and no periauricular adenopathy Face/Nose/Sinus: Normal external nose present, Abnormal mucous membranes and turbinates present erythematous bilateral and diffuse, normal facial exam, sinuses nontender and face symmetric Face and sinus: normal facial exam, sinuses nontender and face symmetric Mouth: Yes Normal oral and palatal mucosa present, Yes lip normal, Yes tongue normal, Yes Normal salivary glands and ducts present, Yes oropharynx normal and Yes moist mucous membranes Teeth and gingiva: dentition normal Throat: posterior oropharynx normal, tonsils normal and uvula midline Eyes: General: appearance normal, both eyes and all related structures Alignment and Position: alignment normal and position normal Periorbital: periorbital findings normal Eyelids: eyelids normal Pupils: Equal, round and reactive pupils present Neck: Neck: normal visual inspection, full ROM, no lymphadenopathy and supple Chest: Chest palpation & inspection: normal inspection of the chest and normal palpation of entire chest wall Resp: Effort & Inspection: normal respiratory effort and able to speak in complete sentences Auscultation: clear to auscultation bilaterally, no crackles, no rales, no rhonchi and no wheezes Cardio: Rate: regular rate Rhythm: regular rhythm Heart sounds: S1 normal heart sound present and S2 normal heart sound present GI: Inspection: normal to inspection Skin: General skin exam: normal color and no rashes or lesions noted Neuro: General: patient oriented x3 and moves all extremities Cranial nerves: Yes Equal, round and reactive pupils present Speech: normal speech Gait exam (Neuro): Normal gait present Extrem: General: normal to inspection, full ROM and no edema Psych: Appearance: grossly normal and well kempt Mental Status: mental status grossly normal Speech and movement: Normal speech and movement present Affect: normal affect Attitude: cooperative Thought process: Normal thought process present Course Course Emergency Course: Discharge instructions reviewed with patient, as well as provided in writing per nursing staff. The instructions also include specific and strict return/GO TO THE ER as well as f/u information. All questions have been answered, and the patient deny any further questions with discharge and discharge plan. Portions of this record may have been created with voice recognition software Level of Care: Express Care Visit Vital Signs Vital signs: Vital Signs Temperature 36.8 C 07/15/25 16:26 Pulse Rate 97 07/15/25 16:26 Respiratory Rate 18 07/15/25 16:26 Blood Pressure 113/64 07/15/25 16:26 Pulse Oximetry 100 07/15/25 16:26 Oxygen Delivery Room Air 07/15/25 16:26 Temperature 36.8 C 07/15/25 16:26 Pulse Rate 97 07/15/25 16:26 Respiratory Rate 18 07/15/25 16:26 Blood Pressure 113/64 07/15/25 16:26 Pulse Oximetry 100 07/15/25 16:26 Oxygen Delivery Room Air 07/15/25 16:26 Reviewed MDM - URI/Sore Throat MDM Narrative Medical decision making narrative: Pt well hydrated appearing, in no respiratory distress, hemodynamically stable. Recommend supportive care. The patient is stable at time of discharge the clinical impression was discussed and the patient was given the opportunity to ask questions, which were addressed as completely as possible given the information available at present. Anticipatory guidance and return to care precautions were discussed and the importance of primary care follow-up was stressed and encouraged. The patient voiced understanding of the plan, indications to return, and the need for follow-up. Exam findings show no acute concerns or changes Patient is appropriate for outpatient treatment and follow-up. Differential diagnosis considered: Hammer virus, strep pharyngitis, allergic rhinitis, upper respiratory tract infection, sinusitis, rhinosinusitis, nasopharyngitis. viral pharyngitis, otitis media, otitis externa, otitis effusion, foreign body, cerumen impaction, viral syndrome, and influenza.? Medical Records Attestation: I reviewed the patient's medical records. Discharge Plan Discharge Clinical Impression: Upper respiratory infection Patient Disposition: Home Condition: Stable Instructions: Upper Respiratory Infection (ED) Additional Instructions: Your symptoms are likely due to a viral illness, which is not treated with antibiotics. Viral symptoms can be present for up to a few weeks. -For pain/fever, you may take: Tylenol 650-1000mg by mouth every 4-6 hours. Do not exceed 4000mg in 24 hours. Advil (Ibuprofen) 600 mg by mouth every 6 hours. Do not exceed 2400mg in 24 hours. 8 AM: Tylenol 11 AM: Ibuprofen 2 PM: Tylenol 5 PM: Ibuprofen 8 PM: Tylenol 11 PM: Ibuprofen 2 AM: Tylenol 5 AM: Ibuprofen -Antihistamine medication such as Benadryl/Zyrtec at night and Claritin/Jenny during the day can help improve symptoms. -Use Flonase twice a day for 5 days then daily to help reduce the inflammation and dry up your sinuses. -You can also use Sudafed behind the pharmacy counter(12 or 24 hour). Be sure to drink plenty of water with these medications at least 8 ounces with every dose and it is important to drink 8 to 10 glasses of water per day. Water is a natural decongestant -Eat and drink things that are easy to swallow, like tea or soup, or popsicles. -Oral rinses such as: Salt water gargles and/or may use topical anesthetic (eg. Chloraseptic spray) or lozenges to relieve dryness or throat pain). -Frequent hand washing or hand pharmacist critical care is one of the best ways to prevent spread of infection. -Using a vaporizer or humidifier at night will also help thin secretions and help with coughing up phlegm. Call your Primary Care Doctor and make a follow-up appointment in 3 days. If your cough worsens, you develop a fever greater than 103, you develop shaking chills, a fast heartbeat, trouble breathing and/or feel you are are breathing much faster than usual, call your Primary Care Doctor or go to the ER. Patient Language: Divehi Prescriptions: New fluticasone propionate [Flonase Allergy Relief] 50 mcg/actuation spray,suspension 1 spray intranasal DAILY Qty: 16 0RF Rx Instructions: administer into each nostril No Action tramadol 50 mg tablet 50 mg PO Q6-8H PRN (Reason: pain) Qty: 14 0RF Follow-up/Referrals: Piedad Marcum MD [Primary Care Provider, Family Practice] - 3 Days Stand Alone Forms: Work/School Release IP Time of Disposition: 16:33
[2025-07-15 16:26] VITALS: BP 113/64; PULSE 97; RESP 18; TEMP 36.8; O2SAT 100
== END 2025-07-15 16:40 | disposition home or self-care (01) ==
PROVIDERS: Emergency Provider Nurse Practitioner Family; PCP Family Medicine
DX: J06.9 Acute upper respiratory infection, unspecified (principal); F12.90 Cannabis use, unspecified, uncomplicated
CPT/HCPCS: 99213; G0463

== ENCOUNTER 2025-10-16 17:19 | Emergency (ER) | payer OTHER, SELFPAY ==
--- NOTE | ~2025-10-16 | XR_ITS ---
XR shoulder RT min 2V HISTORY: shoulder reduction . COMPARISON: None. FINDINGS: 2 views of the right shoulder demonstrate no acute fracture or dislocation. Acromioclavicular joint and glenohumeral joint are unremarkable. IMPRESSION: No acute fracture or dislocation. Reviewed, dictated and finalized at location S. [employer]ER DRIVER
[2025-10-16 17:15] VITALS: PULSE 74; RESP 12; TEMP 36.7; O2SAT 100
[2025-10-16 17:25] VITALS: BP 126/81
[2025-10-16] MEDS: MORPHINE SULFATE (*CRX) 4 MG/ML INJ IV PUSH (17:37)
--- NOTE | 2025-10-16 18:25 | ED.UPPEXIN ---
HPI - Extremity Injury (Upper) General Chief Complaint: Extremity Injury, Upper Stated Complaint: shoulder dislocation Time Seen by Provider: 10/16/25 17:24 History of Present Illness HPI narrative: Patient is a 30-year-old female who presents ER with right shoulder dislocation. She was holding her dog's collar when it pulled and caused her shoulder to pop out. She has dislocated her left shoulder in the past but never her right. No numbness or tingling to the extremity. She did not strike her head or lose consciousness. No additional injury. Pain is worse with any type of movement to the arm. Related Data Allergies Allergy/AdvReac Type Severity Reaction Status Date / Time latex AdvReac Intermediate ITCHING AT Verified 10/16/25 18:18 SITE divalproex sodium (Depakote) AdvReac Unknown Vomiting Verified 10/16/25 18:18 doxycycline AdvReac Unknown Nausea Verified 10/16/25 18:18 montelukast AdvReac Unknown agitation, Verified 10/16/25 18:18 mood changes. prednisone AdvReac Unknown Vomiting Verified 10/16/25 18:18 naproxen AdvReac Vomiting Verified 10/16/25 18:18 Review of Systems Review of Systems: All systems reviewed & are unremarkable except as noted in HPI and below Constitutional: Constitutional: Reports no additional constitutional complaints Cardiovascular: Cardiovascular: Reports no additional cardiovascular complaints Respiratory: Respiratory: Reports no additional respiratory complaints Musculoskeletal: Musculoskeletal: Reports no additional musculoskeletal complaints [facility] Past Medical History Medical History COVID-19 Menorrhagia Sciatica Overweight (BMI 25.0-29.9) Panic disorder/agoraphobia, agoraphobc avoid full rmssn/mld panc attck Ovarian cyst Iron deficiency Surgical History Surgical History Surgical history unknown Family History Family History Grandparent Family history of malignant neoplasm of ovary Other Diabetes mellitus Hypertension Social History Social History Smoking status: Never smoker Alcohol intake: current Substance use type: marijuana Living arrangements: with roommate(s) Gender identity (if verbalized by the patient): Female Spiritual care concerns: No Exam Narrative: GENERAL: Well-appearing, well-nourished, and in no acute distress. HEAD: Normocephalic, atraumatic. CHEST: Clear to auscultation. No respiratory distress. HEART: Regular rate and rhythm. Normal peripheral pulses. EXTREMITIES: Exam consistent with anterior dislocation the right shoulder. Arm out in extension externally rotated. Head of humerus felt anterior to the socket. No clavicular tenderness. Neurovascular intact in the extremity. Normal left upper extremity. SKIN: Warm, dry, no rash. NEURO: Alert and oriented x3. PSYCH: Normal mood and affect. Course Course Emergency Course: Tolerated reduction. Referred ortho. Naproxen and Patriot for home. Will give work note. Vital Signs Vital signs: Vital Signs Temperature 98.1 F 10/16/25 17:15 Pulse Rate 74 10/16/25 17:15 Respiratory Rate 12 10/16/25 17:15 Pulse Oximetry 100 10/16/25 17:15 Oxygen Delivery Room Air 10/16/25 17:15 Temperature 98.1 F 10/16/25 17:15 Pulse Rate 74 10/16/25 17:15 Respiratory Rate 12 10/16/25 17:15 Blood Pressure 126/81 10/16/25 17:25 Pulse Oximetry 100 10/16/25 17:15 Oxygen Delivery Room Air 10/16/25 17:15 Procedures Orthopedic Joint Reduction Joint #1: Orthopedic Joint Reduction Date: 10/16/25 Orthopedic Joint Reduction Time: 17:30 Time Out Performed: No Side: right Joint Reduction Location: shoulder Analgesia: none Pre-Procedure Neuro Vascular Exam: normal Shoulder Technique Used (if applicable): external rotation Post-reduction neuro exam: intact Post-reduction vascular: intact Post Reduction X-Ray Obtained: Yes Post Reduction X-Ray Results: reduced Splint Applied: Yes (Shoulder immobilizer) Patient Tolerated Procedure: well MDM Differential Diagnosis Differential Diagnosis: Shoulder dislocation, extremity fracture, chest wall injury, head injury Imaging Data Attestation: I personally reviewed and interpreted this imaging study as follows: Radiologist's impression: ITS Impressions Shoulder X-Ray 10/16/25 17:58 IMPRESSION: No acute fracture or dislocation. Discharge Plan Discharge Clinical Impression: Dislocation, shoulder Patient Disposition: Home Condition: Stable Instructions: Shoulder Dislocation (ED) Additional Instructions: Follow-up with orthopedic surgery for further treatment. In rest the area. He may apply heat. Take ibuprofen for pain. You may take Patriot for breakthrough pain. Patient Language: Mongolian Prescriptions: New ibuprofen 600 mg tablet 600 mg PO TID Qty: 20 0RF hydrocodone-acetaminophen 5-325 mg tablet 1 tablet PO Q6H PRN (Reason: pain) Qty: 10 0RF hydrocodone-acetaminophen 5-325 mg tablet 1 tablet PO Q6H PRN (Reason: pain) Qty: 10 0RF No Action fluticasone propionate [Flonase Allergy Relief] 50 mcg/actuation spray,suspension 1 spray intranasal DAILY Qty: 16 0RF Rx Instructions: administer into each nostril tramadol 50 mg tablet 50 mg PO Q6-8H PRN (Reason: pain) Qty: 14 0RF Follow-up/Referrals: Piedad Marcum MD [Primary Care Provider, Family Practice] Jesus Padilla MD [Physician, Orthopedics] - 1 Week Stand Alone Forms: Work/School Release IP
[2025-10-16 19:09] VITALS: BP 124/71; PULSE 69; RESP 18; O2SAT 100
== END 2025-10-16 19:10 | disposition home or self-care (01) ==
PROVIDERS: Emergency Provider Emergency Medicine; PCP Family Medicine
DX: S43.004A Unspecified dislocation of right shoulder joint, initial encounter (principal); X58.XXXA Exposure to other specified factors, initial encounter
CPT/HCPCS: 23650; 73030; 96374; 99285; J2270